=== PATIENT | female | born 1945 | race American Indian/Alaskan Native ===

== ENCOUNTER 2017-03-04 15:51 | Outpatient (CLI) | payer MEDICARE | END 2017-03-04 15:52 | disposition home or self-care (01) | LOC: VAS 15:51 | PROVIDERS: ATTEND Internal Medicine Hematology | DX: M79.661 Pain in right lower leg (principal); M79.662 Pain in left lower leg; R60.0 Localized edema; C18.9 Malignant neoplasm of colon, unspecified | CPT/HCPCS: 93970 ==